=== PATIENT | male | born 1990 | race American Indian/Alaskan Native ===

== ENCOUNTER 2018-05-29 12:26 | Inpatient (IN) | payer BC, OTHER ==
[2018-05-29] MEDS ORDERED: Morphine 4 MG/ML Syringe IVPUSH ONE (12:35)
--- NOTE | 2018-05-29 12:36 | EDM.PDOC ---
ED HPI GENERAL MEDICAL PROBLEM - General Chief Complaint: Abdominal Pain Stated Complaint: STOMACH PAIN Time Seen by Provider: 05/29/18 12:36 Source of Information: Reports: Patient History Limitations: Reports: No Limitations - History of Present Illness INITIAL COMMENTS - FREE TEXT/NARRATIVE: HISTORY AND PHYSICAL: History of present illness: Patient is a 27-year-old male brought in by EMS from [facility] for abdominal pain. Patient complaining of diffuse abdominal pain began around 2:30 this morning. Pain is all over her pelvis feels it mostly in the right lower quadrant. He states he had one loose stool this morning and one episode of vomiting. He has since been passing gas. He denies any previous abdominal surgeries. He states he has had felt feverish on and off for the last 2-3 weeks but did not develop any abdominal pain until early this morning. He has history of diet-controlled type 2 diabetes and hypertension. Labs done at [facility] show a normal white count at 10.7. Normal kidney and liver function. Review of systems: As per history of present illness and below otherwise all systems reviewed and negative. Past medical history: As per history of present illness and as reviewed below otherwise noncontributory. Surgical history: As per history of present illness and as reviewed below otherwise noncontributory. Social history: No reported history of drug or alcohol abuse. Family history: As per history of present illness and as reviewed below otherwise noncontributory. Physical exam: General: Patient sitting comfortably in no acute distress and nontoxic appearing HEENT: Atraumatic, normocephalic, pupils reactive, negative for conjunctival pallor or scleral icterus, mucous membranes moist, throat clear, neck supple, nontender, trachea midline. No meningeal signs. Lungs: Clear to auscultation, breath sounds equal bilaterally, chest nontender. Heart: S1S2, regular, negative for clicks, rubs, or overt murmur. Abdomen: Abdomen is obese. Bowel sounds diminished. Diffuse tenderness to light palpation with tenderness to the right lower quadrant. Soft, nondistended. Negative for masses or hepatosplenomegaly. Negative for costovertebral tenderness. Pelvis: Stable nontender. Genitourinary: Deferred. Rectal: Deferred. Extremities: Atraumatic, negative for cords or calf pain. Neurovascular unremarkable. Neuro: Awake, alert, oriented. Cranial nerves II through XII unremarkable. Cerebellum unremarkable. Motor and sensory unremarkable throughout. Exam nonfocal. Notes: Dr. Garcia evaluated patient in the ED and will take him to surgery today for appendectomy. Diagnostics: CT Abdomen/pelvis with contrast Therapeutics: 1L Normal Saline IV 6mg Morphine IV 3.375 Zosyn IV Prescriptions: Impression: Acute appendicitis Plan: Patient will be taken to surgery for appendectomy by Dr. Garcia today. Definitive disposition and diagnosis as appropriate pending reevaluation and review of above. Right Lower Abdomen Pain Score (Numeric/FACES): 9 - Related Data Allergies Allergy/AdvReac Type Severity Reaction Status Date / Time No Known Allergies Allergy Verified 05/29/18 12:30 Home Meds: Home Meds Lisinopril 10 mg DAILY 05/29/18 [History] Past Medical History - Past Health History Medical/Surgical History: Denies Medical/Surgical History Cardiovascular History: Reports: Hypertension Endocrine/Metabolic History: Reports: Obesity/BMI 30+ Other Endocrine/Metabolic History: pre-diabetic, not medicated, checks BG PRN - Infectious Disease History Infectious Disease History: Reports: Chicken Pox - Past Surgical History HEENT Surgical History: Reports: Oral Surgery Social & Family History - Family History Family Medical History: Noncontributory Cardiac: Reports: Hypertension OBGYN: Reports: Endocrine/Metabolic: Reports: Diabetes, type II - Tobacco Use Smoking Status *Q: Never Smoker - Recreational Drug Use Recreational Drug Use: No ED ROS GENERAL - Review of Systems Review Of Systems: ROS reveals no pertinent complaints other than HPI. ED EXAM, GI/ABD - Physical Exam Exam: See Below (see dictation) Course - Vital Signs Last Recorded V/S: Last Vital Signs Temp 96.9 F 05/29/18 12:27 Pulse 61 05/29/18 15:48 Resp 20 05/29/18 12:27 BP 138/73 05/29/18 15:48 Pulse Ox 98 05/29/18 15:48 - Orders/Labs/Meds Orders: Active Orders 24 hr Category Date Time Status Verify Patient Consent Obtain [RC] ASDIRECTED Care 05/29/18 15:49 Active Medication Administration Instruction [OM.PC] Routine Oth 05/29/18 15:49 Ordered Labs: Laboratory Tests 05/29/18 Range/Units 14:20 Urine Color YELLOW Urine Appearance CLEAR Urine pH 5.5 (5.0-8.0) Ur Specific [place] 1.010 (1.001-1.035) Urine Protein NEGATIVE (NEGATIVE) mg/dL Urine Glucose (UA) NEGATIVE (NEGATIVE) mg/dL Urine Ketones NEGATIVE (NEGATIVE) mg/dL Urine Occult Blood TRACE-INTACT H (NEGATIVE) Urine Nitrite NEGATIVE (NEGATIVE) Urine Bilirubin NEGATIVE (NEGATIVE) Urine Urobilinogen 0.2 (<2.0) EU/dL Ur Leukocyte Esterase NEGATIVE (NEGATIVE) Urine RBC NONE SEEN (0-2/HPF) Urine WBC 0-1 (0-5/HPF) Ur Epithelial Cells RARE (NONE-FEW) Amorphous Sediment NOT SEEN (NEGATIVE) Urine Bacteria NOT SEEN (NEGATIVE) Urine Mucus NOT SEEN (NONE-MOD) Meds: Medications Discontinued Medications Generic Name Dose Route Start Last Admin Trade Name Miguelq PRN Reason Stop Dose Admin Sodium Chloride 1,000 mls @ 999 mls/hr 05/29/18 14:40 05/29/18 15:14 Normal Saline IV 05/29/18 15:40 999 mls/hr STAT ONE Administration Piperacillin Sod/Tazobactam 50 mls @ 100 mls/hr 05/29/18 15:16 05/29/18 15:36 Sod 3.375 gm/ Sodium Chloride IV 05/29/18 15:45 100 mls/hr ONETIME ONE Administration Morphine Sulfate 4 mg 05/29/18 12:35 05/29/18 12:43 Morphine IVPUSH 05/29/18 12:36 4 mg ONETIME ONE Administration Morphine Sulfate 2 mg 05/29/18 15:02 05/29/18 15:14 Morphine IVPUSH 05/29/18 15:03 2 mg ONETIME ONE Administration Departure - Departure Time of Disposition: 15:59 Disposition: Home, Self-Care 01 Condition: Good Clinical Impression: Appendicitis, acute - Discharge Information Referrals: Marquis Boggs [Primary Care Provider] - Forms: ED Department Discharge
--- NOTE | 2018-05-29 14:37 | CT ---
CT of the abdomen and pelvis with contrast. HISTORY: Pain TECHNIQUE: Axial CT images were obtained of the abdomen and pelvis before and following administration of 100 mL of Isovue-370 in the left antecubital fossa without complication. Coronal and sagittal reconstructions obtained. FINDINGS: There are a few tiny calcified and noncalcified nodules within the left lung base, likely benign given the patient's age. The liver, spleen, adrenal glands, and pancreas appear normal. The gallbladder is normal. There is no bulky retroperitoneal lymphadenopathy or abdominal ascites. The kidneys enhance and function symmetrically without evidence of obstructive uropathy. The appendix is notably dilated measuring up to 1.9 cm containing multiple phleboliths. Minimal periappendiceal stranding is noted. No free fluid or free air. The large and small bowel are normal in caliber without evidence of obstruction. No pericolonic inflammation or stranding. No free pelvic fluid. The urinary bladder is normal. No pelvic lymphadenopathy. No suspicious osseous abnormalities identified. IMPRESSION: 1. Acute appendicitis without evidence of rupture.
[2018-05-29] MEDS ORDERED: Sodium Chloride 0.9% 1,000 ML IV ONE (14:40)
[2018-05-29] MEDS ORDERED: Morphine 2 MG/ML Syringe IVPUSH ONE (15:02)
[2018-05-29] MEDS ORDERED: Piperacillin/Tazobactam 3.375 GM in Sodium Chloride 0.9% 50 ML IV ONE (15:16)
[2018-05-29] MEDS ORDERED: Iopamidol 755 MG/ML 500 ML Multipack Bottle IVPUSH STA (15:59)
[2018-05-29] MEDS ORDERED: Sodium Chloride 0.9% 10 ML Syringe FLUSH PRN (16:06)
[2018-05-29] MEDS ORDERED: Sodium Chloride 0.9% 2.5 ML Syringe FLUSH PRN (16:06)
--- NOTE | 2018-05-29 16:15 | PCM.HP ---
H&P History of Present Illness - General Date of Service: 05/29/18 Admit Problem/Dx: Admission Diagnosis/Problem Admission Diagnosis/Problem Appendicitis Source of Information: Patient History Limitations: Reports: No Limitations - History of Present Illness Initial Comments - Free Text/Narative: Patient is a 27 year old male who presents with severe RLQ pain. He felt unwell last night when he went to bed. He was awoken this morning at 230am with periumbilical and RLQ pain. He was diaphoretic, nauseated and had an episode of emesis. He presented to an outside clinic. His CBC and CMP were normal. He was sent to the ER due to concerns for early appendicitis. A CT of the abdomen pelvis was performed that revealed a 1.9 cm dilated appendix containing multiple appendicoliths with no evidence of rupture. It was read as acute appendicitis. He has been NPO since yesterday. He was given IVF, IV zosyn, and IV pain medications. Right Lower Abdomen Pain Score (Numeric/FACES): 9 - Related Data Allergies/Adverse Reactions: Allergies Allergy/AdvReac Type Severity Reaction Status Date / Time No Known Allergies Allergy Verified 05/29/18 12:30 Home Medications: Home Meds Lisinopril 10 mg DAILY 05/29/18 [History] Past Medical History - Past Health History Medical/Surgical History: Denies Medical/Surgical History Cardiovascular History: Reports: Hypertension Gastrointestinal History: Reports: Other (See Below) (morbid obesity) Endocrine/Metabolic History: Reports: Obesity/BMI 30+ Other Endocrine/Metabolic History: pre-diabetic, not medicated, checks BG PRN - Infectious Disease History Infectious Disease History: Reports: Chicken Pox - Past Surgical History HEENT Surgical History: Reports: Oral Surgery Social & Family History - Family History Family Medical History: Noncontributory Cardiac: Reports: Hypertension OBGYN: Reports: Endocrine/Metabolic: Reports: Diabetes, type II - Tobacco Use Smoking Status *Q: Never Smoker - Recreational Drug Use Recreational Drug Use: No H&P Review of Systems - Review of Systems: Review Of Systems: ROS reveals no pertinent complaints other than HPI. Exam - Exam Exam: See Below - Vital Signs Vital Signs: Last Vital Signs Temp 36.1 C 05/29/18 12:27 Pulse 61 05/29/18 15:48 Resp 20 05/29/18 12:27 BP 138/73 05/29/18 15:48 Pulse Ox 98 05/29/18 15:48 Weight: 167 kg - Exam General: Alert, Oriented, Moderate Distress HEENT: Conjunctiva Clear, Mucosa Moist & [place], Posterior Pharynx Clear Lungs: Clear to Auscultation, Normal Respiratory Effort Cardiovascular: Regular Rate, Regular Rhythm GI/Abdominal Exam: Soft, No Distention, No Mass, Guarding (RLQ), Tender (RLQ) Extremities: Normal Inspection - Patient Data Lab Results Last 24 hrs: Laboratory Results - last 24 hr 05/29/18 Range/Units 14:20 Urine Color YELLOW Urine Appearance CLEAR Urine pH 5.5 (5.0-8.0) Ur Specific [place] 1.010 (1.001-1.035) Urine Protein NEGATIVE (NEGATIVE) mg/dL Urine Glucose (UA) NEGATIVE (NEGATIVE) mg/dL Urine Ketones NEGATIVE (NEGATIVE) mg/dL Urine Occult Blood TRACE-INTACT H (NEGATIVE) Urine Nitrite NEGATIVE (NEGATIVE) Urine Bilirubin NEGATIVE (NEGATIVE) Urine Urobilinogen 0.2 (<2.0) EU/dL Ur Leukocyte Esterase NEGATIVE (NEGATIVE) Urine RBC NONE SEEN (0-2/HPF) Urine WBC 0-1 (0-5/HPF) Ur Epithelial Cells RARE (NONE-FEW) Amorphous Sediment NOT SEEN (NEGATIVE) Urine Bacteria NOT SEEN (NEGATIVE) Urine Mucus NOT SEEN (NONE-MOD) - Problem List (1) Appendicitis, acute SNOMED Code(s): 34194422 ICD Code: K35.80 - UNSPECIFIED ACUTE APPENDICITIS Status: Acute Current Visit: Yes Problem List Initiated/Reviewed/Updated: Yes Orders Last 24hrs: Active Orders 24 hr Category Date Time Status Admission Status [Patient Status] [ADT] Stat ADT 05/29/18 16:00 Active Verify Patient Consent Obtain [RC] ASDIRECTED Care 05/29/18 15:49 Active Medication Administration Instruction [OM.PC] Routine Oth 05/29/18 15:49 Ordered Assessment/Plan Comment:: The patient and I discussed the pathophysiology of acute appendicitis. I explained to him that the treatment is appendectomy especially given the multiple appendicoliths in his appendix. I will attempt this laparoscopically but should I be unable to perform it safely I will have to convert to open. The patient and I discussed the risks including bleeding infection or damage to surrounding structures. He verbalized understanding and wishes to proceed.
--- NOTE | 2018-05-29 16:15 | PCM.PREANE ---
Preanesthetic Assessment - Anesthesia/Transfusion/Family Hx Anesthesia History: Prior Anesthesia Without Reaction Family History of Anesthesia Reaction: No - Review of Systems General: No Symptoms Pulmonary: No Symptoms Cardiovascular: No Symptoms Gastrointestinal: No Symptoms Neurological: No Symptoms Other: Reports: None - Physical Assessment NPO Status Date: 05/29/18 NPO Status Time: 08:00 O2 Sat by Pulse Oximetry: 98 Respiratory Rate: 20 Vital Signs: Last Vital Signs Temp 36.1 C 05/29/18 12:27 Pulse 61 05/29/18 15:48 Resp 20 05/29/18 12:27 BP 138/73 05/29/18 15:48 Pulse Ox 98 05/29/18 15:48 Height: 6 ft 2 in Weight: 167 kg ASA Class: 2E Mental Status: Alert & Oriented x3 Airway Class: Mallampati = 2 Dentition: Reports: Normal Dentition Thyro-Mental Finger Breadths: 3 Mouth Opening Finger Breadths: 3 ROM/Head Extension: Full Lungs: Clear to Auscultation, Normal Respiratory Effort Cardiovascular: Regular Rate, Regular Rhythm - Lab Values: Laboratory Last Values Urine Color YELLOW 05/29/18 14:20 Urine Appearance CLEAR 05/29/18 14:20 Urine pH 5.5 (5.0-8.0) 05/29/18 14:20 Ur Specific [place] 1.010 (1.001-1.035) 05/29/18 14:20 Urine Protein NEGATIVE mg/dL (NEGATIVE) 05/29/18 14:20 Urine Glucose (UA) NEGATIVE mg/dL (NEGATIVE) 05/29/18 14:20 Urine Ketones NEGATIVE mg/dL (NEGATIVE) 05/29/18 14:20 Urine Occult Blood TRACE-INTACT (NEGATIVE) H 05/29/18 14:20 Urine Nitrite NEGATIVE (NEGATIVE) 05/29/18 14:20 Urine Bilirubin NEGATIVE (NEGATIVE) 05/29/18 14:20 Urine Urobilinogen 0.2 EU/dL (<2.0) 05/29/18 14:20 Ur Leukocyte Esterase NEGATIVE (NEGATIVE) 05/29/18 14:20 Urine RBC NONE SEEN (0-2/HPF) 05/29/18 14:20 Urine WBC 0-1 (0-5/HPF) 05/29/18 14:20 Ur Epithelial Cells RARE (NONE-FEW) 05/29/18 14:20 Amorphous Sediment NOT SEEN (NEGATIVE) 05/29/18 14:20 Urine Bacteria NOT SEEN (NEGATIVE) 05/29/18 14:20 Urine Mucus NOT SEEN (NONE-MOD) 05/29/18 14:20 - Allergies Allergies/Adverse Reactions: Allergies Allergy/AdvReac Type Severity Reaction Status Date / Time No Known Allergies Allergy Verified 05/29/18 12:30 - Acknowledgements Anesthesia Type Planned: General Anesthesia Pt an Appropriate Candidate for the Planned Anesthesia: Yes Alternatives and Risks of Anesthesia Discussed w Pt/Guardian: Yes Pt/Guardian Understands and Agrees with Anesthesia Plan: Yes PreAnesthesia Questionnaire - Past Health History Medical/Surgical History: Denies Medical/Surgical History (Patient has [place] teeth out at age 14.) HEENT History: Reports: None Cardiovascular History: Reports: Hypertension Respiratory History: Reports: None Gastrointestinal History: Reports: GERD (food related) Genitourinary History: Reports: None Musculoskeletal History: Reports: None Neurological History: Reports: None Psychiatric History: Reports: None Endocrine/Metabolic History: Reports: Obesity/BMI 30+ Other Endocrine/Metabolic History: pre-diabetic, not medicated, checks BG PRN Oncologic (Cancer) History: Reports: None Dermatologic History: Reports: None - Infectious Disease History Infectious Disease History: Reports: Chicken Pox - Past Surgical History HEENT Surgical History: Reports: Oral Surgery - SUBSTANCE USE Smoking Status *Q: Never Smoker Recreational Drug Use History: No - HOME MEDS Home Medications: Home Meds Lisinopril 10 mg DAILY 05/29/18 [History] - CURRENT (IN HOUSE) MEDS Current Meds: Current Medications Discontinued Medications Sodium Chloride (Normal Saline) 1,000 mls @ 999 mls/hr IV STAT ONE Stop: 05/29/18 15:40 Last Admin: 05/29/18 15:14 Dose: 999 mls/hr Piperacillin Sod/Tazobactam (Sod 3.375 gm/ Sodium Chloride) 50 mls @ 100 mls/ hr IV ONETIME ONE Stop: 05/29/18 15:45 Last Admin: 05/29/18 15:36 Dose: 100 mls/hr Iopamidol (Isovue Multipack-370 (76%)) 100 ml IVPUSH ONETIME STA Stop: 05/29/18 16:00 Last Admin: 05/29/18 16:01 Dose: 100 ml Morphine Sulfate (Morphine) 4 mg IVPUSH ONETIME ONE Stop: 05/29/18 12:36 Last Admin: 05/29/18 12:43 Dose: 4 mg Morphine Sulfate (Morphine) 2 mg IVPUSH ONETIME ONE Stop: 05/29/18 15:03 Last Admin: 05/29/18 15:14 Dose: 2 mg
[2018-05-29] MEDS ORDERED: Bupivacaine 0.5% 30 ML SDV ONE (16:16)
[2018-05-29] MEDS: Lactated Ringers 1,000 ML IV SCH (16:17)
[2018-05-29] MEDS ORDERED: fentaNYL 250 MCG/5 ML SDV ONE (16:23)
[2018-05-29] MEDS ORDERED: Propofol 200 MG/20 ML SDV ONE ×2 (16:23→16:24)
[2018-05-29] MEDS ORDERED: Rocuronium 10 MG/ML 10 ML Syringe ONE (16:59)
[2018-05-29] MEDS ORDERED: Dexamethasone 4 MG/ML 5 ML MDV ONE (16:59)
[2018-05-29] MEDS ORDERED: Ondansetron 4 MG/2 ML SDV ONE (16:59)
[2018-05-29] MEDS ORDERED: Neostigmine Methylsulfate 1 MG/ML 5 ML Syringe ONE (18:04)
[2018-05-29] MEDS ORDERED: Ketorolac 30 MG/ML SDV ONE (18:04)
[2018-05-29] MEDS ORDERED: Glycopyrrolate 0.2 MG/ML SDV ONE (18:04)
[2018-05-29] MEDS ORDERED: Lidocaine 2% 5 ML SDV ONE (18:05)
[2018-05-29] MEDS ORDERED: Esmolol 100 MG/10 ML SDV ONE (18:09)
[2018-05-29] MEDS ORDERED: Meperidine PF 25 MG/ML Syringe ONE (18:16)
--- NOTE | 2018-05-29 18:23 | PCM.OPNOTE ---
- General Post-Op/Procedure Note Date of Surgery/Procedure: 05/29/18 Operative Procedure(s): Laparoscopic appendectomy Findings: Grossly enlarge and inflamed appendix. Ruptured with manipulation. Pre Op Diagnosis: Appendicitis Post-Op Diagnosis: same Anesthesia Technique: General ET Tube Pathology: Appendix Fluid Replacement, Intraop: 1,000 Output, Urine Amount: 200 EBL in mLs: 10 Condition: Stable
[2018-05-29] MEDS ORDERED: fentaNYL 100 MCG/2 ML SDV IVPUSH PRN (18:26)
[2018-05-29] MEDS ORDERED: Ondansetron 4 MG/2 ML SDV IVPUSH PRN (18:31)
[2018-05-29] MEDS ORDERED: Scopolamine 1.5 MG Transdermal Patch TRDERM PRN (18:31)
[2018-05-29] MEDS ORDERED: Promethazine 25 MG Tab PO PRN (18:32)
--- NOTE | 2018-05-29 20:27 | PCM.POSTAN ---
POST ANESTHESIA ASSESSMENT - MENTAL STATUS Mental Status: Alert, Oriented - RESPIRATORY Respiratory Status: Respiratory Rate WNL, Airway Patent, O2 Saturation Stable - CARDIOVASCULAR CV Status: Pulse Rate WNL, Blood Pressure Stable - GASTROINTESTINAL GI Status: No Symptoms - PAIN Pain Score: 2 - POST OP HYDRATION Hydration Status: Adequate & Stable
[2018-05-29] MEDS: Acetaminophen/oxyCODONE 325-5 MG Tab PO PRN (20:34)
[2018-05-29] MEDS: Piperacillin/Tazobactam 4.5 GM in Sodium Chloride 0.9% 100 ML IV SCH (22:06)
--- NOTE | 2018-05-30 01:16 | OR ---
SURGEON: GISELLE SCHNEIDER MD DATE OF PROCEDURE: 05/29/2018 PREOPERATIVE DIAGNOSIS: Acute appendicitis. POSTOPERATIVE DIAGNOSIS: Acute appendicitis. PROCEDURE PERFORMED: Laparoscopic appendectomy. ANESTHESIA: General endotracheal anesthesia. FLUIDS: 1000 mL crystalloid. ESTIMATED BLOOD LOSS: 10 mL. URINE OUTPUT: 200 mL. FINDINGS: Grossly enlarged and inflamed appendix. Perforation with manipulation of the appendix. COMPLICATIONS: None. INDICATIONS: The patient is a 27-year-old male, who presents with one day of right lower quadrant abdominal pain. A CT of the abdomen and pelvis showed a grossly distended inflamed appendix full of appendicoliths consistent with acute appendicitis. The patient and I discussed these findings. I explained that the treatment for appendicitis is appendectomy. I explained to him that I would attempt it laparoscopically, but should I be unable to perform this safely, I would convert it to open. I explained the procedure, expected perioperative course, and risks including bleeding, infection, or damage to surrounding structures. The patient verbalized understanding and wishes to proceed. PROCEDURE IN DETAIL: The patient was brought into the OR and placed on the OR table in supine position. A time-out was completed verifying the patient's name, age, date of , allergies, and procedure to be performed. General endotracheal anesthesia was induced. The left arm was tucked to the patient's side and a Adkins catheter placed. The abdomen was prepped and draped in usual standard fashion. I anesthetized the skin three fingerbreadths below the left subcostal margin in the midclavicular line with 0.5% Marcaine plain. A 1 cm incision was made using an 11 blade. A 5 mm optical trocar was used to gain entry into the abdomen in the left upper quadrant. All layers of the abdominal wall were visualized upon entry. The abdomen was insufflated and I inserted a 5 mm 30 degree scope into the abdomen. I inspected the area underneath my initial trocar placement. No damage to surrounding structures was noted. A 5 mm trocar was placed under direct visualization just left and lateral of the umbilicus. The patient was then placed into Trendelenburg position and airplaned slightly to the left. I immediately encountered an enlarged and inflamed appendix. I then placed a 12 mm trocar under direct visualization in the left lower quadrant. The tip of the appendix was grasped with an atraumatic grasper and I followed the appendiceal mesentery down to the base of the appendix. I could clearly see the tenia of the cecum and see where the appendix inserted on the cecum. Using a Harmonic Scalpel, I took down the appendiceal mesentery from the body of the appendix in distal to proximal fashion. While manipulating the appendix, it ruptured in the middle. There was some spillage of purulent fluid and a small appendicolith fell out. I quickly suctioned as much fluid as I could and removed the appendicolith using my atraumatic graspers. I continued to carry my dissection down to the base of the appendix. Once the base of the appendix was cleared away, I then brought an endoscopic stapling device into the field. I then stapled and transected across the base of the appendix where it inserted on the cecum using a 45 mm blue load of krish. The appendix was then placed in an EndoCatch bag and removed through the 12 mm port site. The 12 mm port was placed back in the abdomen and I copiously irrigated the abdomen with 3 L of normal saline. Great care was taken to try and suction out as much food as I possibly could. I then inspected my staple line and it appeared to be intact. The field was hemostatic. The 12 mm port site was then closed with a 0 Vicryl suture using a Rob-Seble device. I noticed some bruising around the 12 mm trocar site. I closely monitored this area for several minutes to ensure that he was not developing a large hematoma in the area. The bruising did not seem to progress and I was satisfied with my hemostasis. The 5 mm trocars were removed under direct visualization and the abdomen allowed to desufflate. Given the contaminated nature of the case, I closed the incision sites with krish. Sterile dressings were applied. The patient tolerated the procedure well and was extubated in the operating room. He was transferred to the PACU in stable condition. All counts were complete and correct at the end of the case. ISIDRO SUNSHINE /[id number] [place]
[2018-05-30] MEDS: Acetaminophen/oxyCODONE 325-5 MG Tab PO PRN ×4 (02:23→16:54)
[2018-05-30] MEDS: Lactated Ringers 1,000 ML IV SCH ×2 (02:57→18:34)
[2018-05-30] MEDS: Piperacillin/Tazobactam 4.5 GM in Sodium Chloride 0.9% 100 ML IV SCH ×3 (06:32→23:15)
[2018-05-30 06:41] LABS: CHLORIDE,CL 105 mmol/L (98-107); SODIUM,NA 139 mmol/L (136-148)
[2018-05-30] MEDS: Lisinopril 10 MG Tab PO SCH (08:36)
--- NOTE | 2018-05-30 08:40 | PCM48HPAN ---
Post Anesthesia Note - EVALUATION WITHIN 48HRS OF ANESTHETIC Vital Signs in Normal Range: Yes Patient Participated in Evaluation: Yes Respiratory Function Stable: Yes Airway Patent: Yes Cardiovascular Function Stable: Yes Hydration Status Stable: Yes Pain Control Satisfactory: Yes (Pt states doing ok. Sore but not in pain like before surgery.) Nausea and Vomiting Control Satisfactory: Yes Mental Status Recovered: Yes Resp Rate: 23 - COMMENTS/OBSERVATIONS Free Text/Narrative:: Patient sitting on edge of bed. He states it's hard for him to take a deep breath due to discomfort. Encouraged him to continue his spirometry, walk and stay on top of his pain. Vital signs are stable. No anesthesia complications at this time.
[2018-05-30] MEDS ORDERED: Cyclobenzaprine 5 MG Tab PO PRN (09:28)
--- NOTE | 2018-05-30 09:37 | PCM.SURGPN ---
- General Info Date of Service: 05/30/18 Date of Surgery/Procedure: 05/29/18 POD#: 1 Functional Status: Reports: Other (Pin in shoulders this morning. Sore in RLQ but much better than before surgery. Minimal tenderness along incisions. ) - Review of Systems General: Reports: No Symptoms HEENT: Reports: No Symptoms Pulmonary: Reports: Shortness of Breath Cardiovascular: Reports: No Symptoms Gastrointestinal: Reports: Abdominal Pain (RLQ) Musculoskeletal: Reports: Shoulder Pain - Patient Data Vitals - Most Recent: Last Vital Signs Temp 37.3 C 05/30/18 09:06 Pulse 106 H 05/30/18 09:06 Resp 17 05/30/18 09:06 BP 112/60 05/30/18 09:06 Pulse Ox 93 L 05/30/18 09:06 Weight - Most Recent: 167 kg I&O - Last 24 Hours: Intake & Output 05/29/18 05/30/18 05/30/18 22:59 06:59 14:59 Intake Total 2000 1000 Output Total 600 800 Balance 1400 200 Lab Results Last 24 Hrs: Laboratory Results - last 24 hr 05/29/18 05/30/18 05/30/18 Range/Units 14:20 06:01 06:01 WBC 12.11 H (4.0-11.0) K/uL RBC 4.78 (4.50-5.90) M/uL Hgb 14.5 (13.0-17.0) g/dL Hct 42.6 (38.0-50.0) % MCV 89.1 (80.0-98.0) fL MCH 30.3 (27.0-32.0) pg MCHC 34.0 (31.0-37.0) g/dL RDW Std Deviation 45.2 (28.0-62.0) fl RDW Coeff of Merna 14 (11.0-15.0) % Plt Count 248 (150-400) K/uL MPV 10.40 (7.40-12.00) fL Nucleated RBC % 0.0 /100WBC Nucleated RBCs # 0 K/uL Sodium 139 (136-148) mmol/L Potassium 4.4 (3.5-5.1) mmol/L Chloride 105 (98-107) mmol/L Carbon Dioxide 24.0 (21.0-32.0) mmol/L BUN 12 (7.0-18.0) mg/dL Creatinine 1.1 (0.8-1.3) mg/dL Est Cr Clr Drug Dosing 115.20 mL/min Estimated GFR (MDRD) > 60.0 ml/min Glucose 145 H (74-106) mg/dL Calcium 9.6 (8.5-10.1) mg/dL Urine Color YELLOW Urine Appearance CLEAR Urine pH 5.5 (5.0-8.0) Ur Specific [place] 1.010 (1.001-1.035) Urine Protein NEGATIVE (NEGATIVE) mg/dL Urine Glucose (UA) NEGATIVE (NEGATIVE) mg/dL Urine Ketones NEGATIVE (NEGATIVE) mg/dL Urine Occult Blood TRACE-INTACT H (NEGATIVE) Urine Nitrite NEGATIVE (NEGATIVE) Urine Bilirubin NEGATIVE (NEGATIVE) Urine Urobilinogen 0.2 (<2.0) EU/dL Ur Leukocyte Esterase NEGATIVE (NEGATIVE) Urine RBC NONE SEEN (0-2/HPF) Urine WBC 0-1 (0-5/HPF) Ur Epithelial Cells RARE (NONE-FEW) Amorphous Sediment NOT SEEN (NEGATIVE) Urine Bacteria NOT SEEN (NEGATIVE) Urine Mucus NOT SEEN (NONE-MOD) Med Orders - Current: Current Medications Cyclobenzaprine HCl (Flexeril) 5 mg PO TID PRN PRN Reason: Abdominal Pain Fentanyl (Sublimaze) 50 mcg IVPUSH Q5M PRN PRN Reason: Pain (severe 7-10) Stop: 05/30/18 18:27 Hydromorphone HCl (Dilaudid) 0.5 mg IVPUSH Q1H PRN PRN Reason: Abdominal Pain Lactated Ringer's (Ringers, Lactated) 1,000 mls @ 125 mls/hr IV ASDIRECTED [facility] Last Admin: 05/30/18 02:57 Dose: 125 mls/hr Piperacillin Sod/Tazobactam (Sod 4.5 gm/ Sodium Chloride) 100 mls @ 100 mls/hr IV Q8H [facility] Last Admin: 05/30/18 06:32 Dose: 100 mls/hr Lisinopril (Prinivil) 10 mg PO DAILY [facility] Last Admin: 05/30/18 08:36 Dose: 10 mg Ondansetron HCl (Zofran) 4 mg IVPUSH Q6H PRN PRN Reason: Nausea/Vomiting Oxycodone/Acetaminophen (Percocet 325-5 Mg) 2 tab PO Q4H PRN PRN Reason: Abdominal Pain Last Admin: 05/30/18 08:39 Dose: 2 tab Promethazine HCl (Phenergan) 25 mg PO Q6H PRN PRN Reason: Nausea/Vomiting Scopolamine (Transderm-Scop) 1.5 mg TRDERM Q72H PRN PRN Reason: Nausea Sodium Chloride (Saline Flush) 10 ml FLUSH ASDIRECTED PRN PRN Reason: Keep Vein Open Last Admin: 05/29/18 16:17 Dose: 10 ml Sodium Chloride (Saline Flush) 2.5 ml FLUSH ASDIRECTED PRN PRN Reason: Keep Vein Open Last Admin: 05/29/18 16:17 Dose: 2.5 ml Discontinued Medications Bupivacaine HCl (Marcaine 0.5%) Confirm Administered Dose 30 ml .ROUTE .STK-MED ONE Stop: 05/29/18 16:17 Dexamethasone (Dexamethasone) Confirm Administered Dose 20 mg .ROUTE .STK-MED ONE Stop: 05/29/18 17:00 Esmolol HCl (Esmolol) Confirm Administered Dose 100 mg .ROUTE .STK-MED ONE Stop: 05/29/18 18:10 Fentanyl (Sublimaze) Confirm Administered Dose 250 mcg .ROUTE .STK-MED ONE Stop: 05/29/18 16:24 Glycopyrrolate (Robinul) Confirm Administered Dose 0.4 mg .ROUTE .STK-MED ONE Stop: 05/29/18 18:05 Sodium Chloride (Normal Saline) 1,000 mls @ 999 mls/hr IV STAT ONE Stop: 05/29/18 15:40 Last Admin: 05/29/18 15:14 Dose: 999 mls/hr Piperacillin Sod/Tazobactam (Sod 3.375 gm/ Sodium Chloride) 50 mls @ 100 mls/ hr IV ONETIME ONE Stop: 05/29/18 15:45 Last Admin: 05/29/18 15:36 Dose: 100 mls/hr Iopamidol (Isovue Multipack-370 (76%)) 100 ml IVPUSH ONETIME STA Stop: 05/29/18 16:00 Last Admin: 05/29/18 16:01 Dose: 100 ml Ketorolac Tromethamine (Toradol) Confirm Administered Dose 30 mg .ROUTE .STK- MED ONE Stop: 05/29/18 18:05 Lidocaine (Xylocaine-Mpf 2%) Confirm Administered Dose 5 ml .ROUTE .STK-MED ONE Stop: 05/29/18 18:06 Meperidine HCl (Demerol) Confirm Administered Dose 25 mg .ROUTE .STK-MED ONE Stop: 05/29/18 18:17 Morphine Sulfate (Morphine) 4 mg IVPUSH ONETIME ONE Stop: 05/29/18 12:36 Last Admin: 05/29/18 12:43 Dose: 4 mg Morphine Sulfate (Morphine) 2 mg IVPUSH ONETIME ONE Stop: 05/29/18 15:03 Last Admin: 05/29/18 15:14 Dose: 2 mg Neostigmine Methylsulfate (Neostigmine) Confirm Administered Dose 5 mg .ROUTE .STK-MED ONE Stop: 05/29/18 18:05 Ondansetron HCl (Zofran) Confirm Administered Dose 4 mg .ROUTE .STK-MED ONE Stop: 05/29/18 17:00 Propofol (Diprivan 20 Ml) Confirm Administered Dose 200 mg .ROUTE .STK-MED ONE Stop: 05/29/18 16:24 Propofol (Diprivan 20 Ml) Confirm Administered Dose 200 mg .ROUTE .STK-MED ONE Stop: 05/29/18 16:25 Rocuronium [place] (Zemuron) Confirm Administered Dose 100 mg .ROUTE .STK-MED ONE Stop: 05/29/18 17:00 - Exam Wound/Incisions: Healing Well, Dressing Dry and Intact General: Alert, Oriented, Mild Distress Lungs: Normal Respiratory Effort Cardiovascular: Regular Rate GI/Abdominal Exam: Soft, No Distention, No Mass, Tender (mild tenderness in RLQ ) Extremities: Normal Inspection Skin: Warm, Dry, Intact Neurological: No New Focal Deficit Psy/Mental Status: Alert, Normal Affect, Normal Mood - Problem List & Annotations (1) Appendicitis, acute SNOMED Code(s): 83761821 Code(s): K35.80 - UNSPECIFIED ACUTE APPENDICITIS Status: Acute Current Visit: Yes - Problem List Review Problem List Initiated/Reviewed/Updated: Yes - My Orders Last 24 Hours: Active Orders 24 hr Category Date Time Status Admission Status [Patient Status] [ADT] Stat ADT 05/29/18 16:00 Active Patient Status [ADT] Routine ADT 05/29/18 16:06 Active Antiembolic Devices [RC] PER UNIT ROUTINE Care 05/29/18 16:07 Active Bradycardia-Neuroaxis [employer] [RC] ROUTINE Care 05/29/18 18:26 Active Hypertension-Neuroaxis [employer] [RC] ROUTINE Care 05/29/18 18:26 Active Hypotension-Neuroaxis [employer] [RC] ROUTINE Care 05/29/18 18:26 Active Overnight Pulse Oximetry [Overnight Pulse Oximetry] [RC Care 05/29/18 18:35 Active ] Click to Edit Clear Liquid Diet [DIET] Diet 05/29/18 Dinner Active Regular Diet [DIET] Diet 05/30/18 Lunch Ordered Acetaminophen/oxyCODONE [Percocet 325-5 MG] Med 05/29/18 18:20 Active 2 tab PO Q4H PRN Cyclobenzaprine [Flexeril] Med 05/30/18 09:28 Ordered 5 mg PO TID PRN HYDROmorphone [Dilaudid] Med 05/29/18 18:19 Active 0.5 mg IVPUSH Q1H PRN Lactated Ringers [Ringers, Lactated] 1,000 ml Med 05/29/18 16:15 Active IV ASDIRECTED Lisinopril [Prinivil] Med 05/30/18 09:00 Active 10 mg PO DAILY Ondansetron [Zofran] Med 05/29/18 18:31 Active 4 mg IVPUSH Q6H PRN Piperacillin/Tazobactam [Piperacil-Tazobact] 4.5 gm Med 05/29/18 23:00 Active Sodium Chloride 0.9% [Normal Saline] 100 ml IV Q8H Promethazine [Phenergan] Med 05/29/18 18:32 Active 25 mg PO Q6H PRN Scopolamine [Transderm-Scop] Med 05/29/18 18:31 Active 1.5 mg TRDERM Q72H PRN Sodium Chloride 0.9% [Saline Flush] Med 05/29/18 16:06 Active 10 ml FLUSH ASDIRECTED PRN Sodium Chloride 0.9% [Saline Flush] Med 05/29/18 16:06 Active 2.5 ml FLUSH ASDIRECTED PRN fentaNYL [Sublimaze] Med 05/29/18 18:26 Active 50 mcg IVPUSH Q5M PRN Medication Administration Instruction [OM.PC] Routine Oth 05/29/18 15:49 Ordered Peripheral IV Insertion Adult [OM.PC] Routine Oth 05/29/18 16:06 Ordered Sequential Compression Device [OM.PC] Routine Oth 05/29/18 16:06 Ordered Resuscitation Status Routine Resus Stat 05/29/18 16:06 Ordered Medication Orders Cyclobenzaprine HCl (Flexeril) 5 mg PO TID PRN PRN Reason: Abdominal Pain Fentanyl (Sublimaze) 50 mcg IVPUSH Q5M PRN PRN Reason: Pain (severe 7-10) Stop: 05/30/18 18:27 Hydromorphone HCl (Dilaudid) 0.5 mg IVPUSH Q1H PRN PRN Reason: Abdominal Pain Lactated Ringer's (Ringers, Lactated) 1,000 mls @ 125 mls/hr IV ASDIRECTED [facility] Last Admin: 05/30/18 02:57 Dose: 125 mls/hr Infusion: 05/30/18 00:17 Dose: 125 mls/hr Admin: 05/29/18 16:17 Dose: 125 mls/hr Piperacillin Sod/Tazobactam (Sod 4.5 gm/ Sodium Chloride) 100 mls @ 100 mls/hr IV Q8H [facility] Last Admin: 05/30/18 06:32 Dose: 100 mls/hr Infusion: 05/29/18 23:06 Dose: 100 mls/hr Admin: 05/29/18 22:06 Dose: 100 mls/hr Lisinopril (Prinivil) 10 mg PO DAILY [facility] Last Admin: 05/30/18 08:36 Dose: 10 mg Ondansetron HCl (Zofran) 4 mg IVPUSH Q6H PRN PRN Reason: Nausea/Vomiting Oxycodone/Acetaminophen (Percocet 325-5 Mg) 2 tab PO Q4H PRN PRN Reason: Abdominal Pain Last Admin: 05/30/18 08:39 Dose: 2 tab Admin: 05/30/18 02:23 Dose: 2 tab Admin: 05/29/18 20:34 Dose: 2 tab Promethazine HCl (Phenergan) 25 mg PO Q6H PRN PRN Reason: Nausea/Vomiting Scopolamine (Transderm-Scop) 1.5 mg TRDERM Q72H PRN PRN Reason: Nausea Sodium Chloride (Saline Flush) 10 ml FLUSH ASDIRECTED PRN PRN Reason: Keep Vein Open Last Admin: 05/29/18 16:17 Dose: 10 ml Sodium Chloride (Saline Flush) 2.5 ml FLUSH ASDIRECTED PRN PRN Reason: Keep Vein Open Last Admin: 05/29/18 16:17 Dose: 2.5 ml - Plan Plan (Free Text/Narrative):: -Pain: IV dilaudid for severe pain, percocet and flexeril prn -CV: Vitals stable. -Pulmonary: Encouraged OOB activity and IS use. We discussed how to use this machine. -GI: regular diet -Renal: D/C IVF -ID: Iv zosyn until tomorrow given the perforated appendix -Px: SCDs, no need for GI px
[2018-05-30] MEDS: HYDROmorphone 1 MG/ML Syringe IVPUSH PRN ×2 (17:05→18:32)
[2018-05-30] MEDS ORDERED: HYDROmorphone 1 MG/ML Syringe IVPUSH ONE (17:20)
--- NOTE | 2018-05-30 18:05 | PCM.SN ---
- Free Text/Narrative Note: Patient is a 27 year old male who is POD #1 from a laparoscopic appendectomy. He was doing well this afternoon. He tolerated a regular diet. UOP was adequate. He ambulated in the halls then took a nap. Pain was under control. Upon waking from the nap he went to the bathroom, urinated then developed severe abdominal pain. He states that the pain is most severe on the right side of the abdomen. He complains of pain with movement. He was given percocet, flexeril, and 1mg of IV Dilaudid with no relief. His vitals were HR 122. BP 176/ 79. RR 18 and sats 91%. On physicial exam he is tender with palpation on the right side of the abdomen. There is no sanjana rebound or guarding, but he complains of severe pain with any palpation. He is not tender with percussion. A stat CBC was drawn. It is unchanged from this morning. A stat lactate and BMP were ordered and are pending. Given how severe his pain is I am ordering a stat CT abdomen/pelvis without IV contrast.
[2018-05-30 18:22] LABS: CHLORIDE,CL 103 mmol/L (98-107); SODIUM,NA 137 mmol/L (136-148)
--- NOTE | 2018-05-30 19:02 | CT ---
Indication: Abdominal pain. Technique: Multiple contiguous axial images were obtained from the lung bases through the symphysis pubis without intravenous contrast enhancement. Please note that all CT scans at this facility use dose modulation, iterative reconstruction, and/or weight-based dosing when appropriate to reduce radiation dose to as low as reasonably achievable. Comparison: None Findings: Trace bilateral pleural effusions are identified. Bibasilar atelectasis is seen. The heart is normal in size. No pericardial effusions identified. The unenhanced liver, spleen, pancreas, adrenals, and kidneys are normal. No intrahepatic biliary ductal dilatation is identified. No hydronephrosis is identified. There is high-density layering within the gallbladder, suggesting stones/sludge. In the pelvis, the urinary bladder is normal. The prostate gland is normal. The patient had an appendectomy yesterday. Inflammatory changes are identified in the right lower quadrant. Free fluid is identified within the pelvis. No definite abscess is identified. No definite free air seen. The small and large bowel are normal in caliber. The aorta is normal in caliber. No lytic or blastic lesions are identified within the spine. Multiple images are degraded by motion artifact. Impression: Inflammatory changes in the right lower quadrant s/p appendectomy. No definite free air, but free fluid is identified within the pelvis. An abscess is not clearly seen. These findings were discussed with Dr. Garcia at the time of this dictation. Please note that all CT scans at this facility use dose modulation, iterative reconstruction, and/or weight-based dosing when appropriate to reduce radiation dose to as low as reasonably achievable. Dictated by Amelia Lockett MD @ May 30 2018 6:52PM Signed by Dr. Amelia Lockett @ May 30 2018 6:59PM
[2018-05-30] MEDS ORDERED: diazePAM 5 MG/ML MDV IV PRN (19:10)
[2018-05-30] MEDS ORDERED: Morphine 4 MG/ML Syringe IVPUSH PRN (19:10)
[2018-05-30] MEDS: Ketorolac 15 MG/ML SDV IVPUSH SCH (19:49)
[2018-05-30] MEDS: Acetaminophen/HYDROcodone 325-5 MG Tab PO PRN (22:06)
[2018-05-31] MEDS: Ketorolac 15 MG/ML SDV IVPUSH SCH ×4 (00:21→18:21)
[2018-05-31] MEDS: Lactated Ringers 1,000 ML IV SCH (03:06)
[2018-05-31] MEDS: Acetaminophen/HYDROcodone 325-5 MG Tab PO PRN ×5 (03:51→23:01)
[2018-05-31 06:10] LABS: CHLORIDE,CL 104 mmol/L (98-107); SODIUM,NA 135 mmol/L (136-148)
[2018-05-31] MEDS: Piperacillin/Tazobactam 4.5 GM in Sodium Chloride 0.9% 100 ML IV SCH ×3 (06:44→22:59)
--- NOTE | 2018-05-31 07:50 | PCM.SURGPN ---
- General Info Date of Service: 05/31/18 Date of Surgery/Procedure: 05/29/18 POD#: 2 Functional Status: Reports: Other (Patient states that his pain is under much better control this morning. He is still sore along the right side of his abdomen. He had shoulder pain last evening but that is now gone. No fevers overnight. Remains mildly tachycardic. No nausea or vomiting. Started passing flatus overnight. ) - Review of Systems General: Reports: No Symptoms HEENT: Reports: No Symptoms Pulmonary: Reports: No Symptoms Cardiovascular: Reports: No Symptoms Gastrointestinal: Reports: Abdominal Pain (RLQ), Flatus Genitourinary: Reports: No Symptoms Musculoskeletal: Reports: No Symptoms Skin: Reports: No Symptoms Neurological: Reports: No Symptoms - Patient Data Vitals - Most Recent: Last Vital Signs Temp 36.8 C 05/31/18 03:00 Pulse 117 H 05/31/18 03:00 Resp 18 05/31/18 03:00 BP 159/76 H 05/31/18 03:00 Pulse Ox 91 L 05/31/18 03:00 Weight - Most Recent: 167 kg I&O - Last 24 Hours: Intake & Output 05/30/18 05/31/18 05/31/18 22:59 06:59 14:59 Intake Total 1090 Balance 1090 Lab Results Last 24 Hrs: Laboratory Results - last 24 hr 05/30/18 05/30/18 05/30/18 Range/Units 17:28 17:54 17:54 WBC 12.02 H (4.0-11.0) K/uL RBC 4.83 (4.50-5.90) M/uL Hgb 14.7 (13.0-17.0) g/dL Hct 43.1 (38.0-50.0) % MCV 89.2 (80.0-98.0) fL MCH 30.4 (27.0-32.0) pg MCHC 34.1 (31.0-37.0) g/dL RDW Std Deviation 46.1 (28.0-62.0) fl RDW Coeff of Merna 14 (11.0-15.0) % Plt Count 252 (150-400) K/uL MPV 10.10 (7.40-12.00) fL Neut % (Auto) 77.1 (48.0-80.0) % Lymph % (Auto) 16.5 (16.0-40.0) % [place] % (Auto) 6.2 (0.0-15.0) % Eos % (Auto) 0.1 (0.0-7.0) % Baso % (Auto) 0.1 (0.0-1.5) % Neut # (Auto) 9.3 H (1.4-5.7) K/uL Lymph # (Auto) 2.0 (0.6-2.4) K/uL [place] # (Auto) 0.8 (0.0-0.8) K/uL Eos # (Auto) 0.0 (0.0-0.7) K/uL Baso # (Auto) 0.0 (0.0-0.1) K/uL Nucleated RBC % 0.0 /100WBC Nucleated RBCs # 0 K/uL Lactate 0.7 (0.20-2.00) mmol/L Sodium 137 (136-148) mmol/L Potassium 3.9 (3.5-5.1) mmol/L Chloride 103 (98-107) mmol/L Carbon Dioxide 26.6 (21.0-32.0) mmol/L BUN 10 (7.0-18.0) mg/dL Creatinine 1.0 (0.8-1.3) mg/dL Est Cr Clr Drug Dosing 126.73 mL/min Estimated GFR (MDRD) > 60.0 ml/min Glucose 124 H (74-106) mg/dL Calcium 9.4 (8.5-10.1) mg/dL 05/31/18 05/31/18 05/31/18 Range/Units 05:46 05:46 07:26 WBC 12.51 H (4.0-11.0) K/uL RBC 4.43 L (4.50-5.90) M/uL Hgb 13.3 (13.0-17.0) g/dL Hct 39.4 (38.0-50.0) % MCV 88.9 (80.0-98.0) fL MCH 30.0 (27.0-32.0) pg MCHC 33.8 (31.0-37.0) g/dL RDW Std Deviation 46.6 (28.0-62.0) fl RDW Coeff of Merna 14 (11.0-15.0) % Plt Count 216 (150-400) K/uL MPV 10.00 (7.40-12.00) fL Neut % (Auto) 86.8 H (48.0-80.0) % Lymph % (Auto) 6.2 L (16.0-40.0) % [place] % (Auto) 7.0 (0.0-15.0) % Eos % (Auto) 0.0 (0.0-7.0) % Baso % (Auto) 0.0 (0.0-1.5) % Neut # (Auto) 10.9 H (1.4-5.7) K/uL Lymph # (Auto) 0.8 (0.6-2.4) K/uL [place] # (Auto) 0.9 H (0.0-0.8) K/uL Eos # (Auto) 0.0 (0.0-0.7) K/uL Baso # (Auto) 0.0 (0.0-0.1) K/uL Nucleated RBC % 0.0 /100WBC Nucleated RBCs # 0 K/uL Lactate 0.6 (0.20-2.00) mmol/L Sodium 135 L (136-148) mmol/L Potassium 3.8 (3.5-5.1) mmol/L Chloride 104 (98-107) mmol/L Carbon Dioxide 23.1 (21.0-32.0) mmol/L BUN 12 (7.0-18.0) mg/dL Creatinine 0.9 (0.8-1.3) mg/dL Est Cr Clr Drug Dosing 140.81 mL/min Estimated GFR (MDRD) > 60.0 ml/min Glucose 124 H (74-106) mg/dL Calcium 9.5 (8.5-10.1) mg/dL Med Orders - Current: Current Medications Hydrocodone Bitart/Acetaminophen (Boyd 325-5 Mg) 2 tab PO Q4H PRN PRN Reason: Abdominal Pain Last Admin: 05/31/18 03:51 Dose: 2 tab Diazepam (Valium) 5 mg IV BID PRN PRN Reason: Muscle Spasm Last Admin: 05/30/18 23:11 Dose: 5 mg Piperacillin Sod/Tazobactam (Sod 4.5 gm/ Sodium Chloride) 100 mls @ 100 mls/hr IV Q8H [facility] Last Admin: 05/31/18 06:44 Dose: 100 mls/hr Lactated Ringer's (Ringers, Lactated) 1,000 mls @ 125 mls/hr IV ASDIRECTED [facility] Last Admin: 05/31/18 03:06 Dose: 125 mls/hr Ketorolac Tromethamine (Toradol) 15 mg IVPUSH Q6H [facility] Stop: 06/04/18 19:09 Last Admin: 05/31/18 06:40 Dose: 15 mg Lisinopril (Prinivil) 10 mg PO DAILY [facility] Last Admin: 05/30/18 08:36 Dose: 10 mg Morphine Sulfate (Morphine) 4 mg IVPUSH Q2H PRN PRN Reason: Pain (severe 7-10) Last Admin: 05/31/18 03:00 Dose: 4 mg Ondansetron HCl (Zofran) 4 mg IVPUSH Q6H PRN PRN Reason: Nausea/Vomiting Promethazine HCl (Phenergan) 25 mg PO Q6H PRN PRN Reason: Nausea/Vomiting Scopolamine (Transderm-Scop) 1.5 mg TRDERM Q72H PRN PRN Reason: Nausea Sodium Chloride (Saline Flush) 10 ml FLUSH ASDIRECTED PRN PRN Reason: Keep Vein Open Last Admin: 05/29/18 16:17 Dose: 10 ml Sodium Chloride (Saline Flush) 2.5 ml FLUSH ASDIRECTED PRN PRN Reason: Keep Vein Open Last Admin: 05/29/18 16:17 Dose: 2.5 ml Discontinued Medications Bupivacaine HCl (Marcaine 0.5%) Confirm Administered Dose 30 ml .ROUTE .STK-MED ONE Stop: 05/29/18 16:17 Cyclobenzaprine HCl (Flexeril) 5 mg PO TID PRN PRN Reason: Abdominal Pain Last Admin: 05/30/18 11:07 Dose: 5 mg Dexamethasone (Dexamethasone) Confirm Administered Dose 20 mg .ROUTE .STK-MED ONE Stop: 05/29/18 17:00 Esmolol HCl (Esmolol) Confirm Administered Dose 100 mg .ROUTE .STK-MED ONE Stop: 05/29/18 18:10 Fentanyl (Sublimaze) Confirm Administered Dose 250 mcg .ROUTE .STK-MED ONE Stop: 05/29/18 16:24 Fentanyl (Sublimaze) 50 mcg IVPUSH Q5M PRN PRN Reason: Pain (severe 7-10) Stop: 05/30/18 18:27 Glycopyrrolate (Robinul) Confirm Administered Dose 0.4 mg .ROUTE .STK-MED ONE Stop: 05/29/18 18:05 Hydromorphone HCl (Dilaudid) 0.5 mg IVPUSH Q1H PRN PRN Reason: Abdominal Pain Last Admin: 05/30/18 18:32 Dose: 0.5 mg Hydromorphone HCl (Dilaudid) 0.5 mg IVPUSH ONETIME ONE Stop: 05/30/18 17:21 Last Admin: 05/30/18 17:28 Dose: 0.5 mg Sodium Chloride (Normal Saline) 1,000 mls @ 999 mls/hr IV STAT ONE Stop: 05/29/18 15:40 Last Admin: 05/29/18 15:14 Dose: 999 mls/hr Piperacillin Sod/Tazobactam (Sod 3.375 gm/ Sodium Chloride) 50 mls @ 100 mls/ hr IV ONETIME ONE Stop: 05/29/18 15:45 Last Admin: 05/29/18 15:36 Dose: 100 mls/hr Lactated Ringer's (Ringers, Lactated) 1,000 mls @ 125 mls/hr IV ASDIRECTED [facility] Last Admin: 05/30/18 02:57 Dose: 125 mls/hr Iopamidol (Isovue Multipack-370 (76%)) 100 ml IVPUSH ONETIME STA Stop: 05/29/18 16:00 Last Admin: 05/29/18 16:01 Dose: 100 ml Ketorolac Tromethamine (Toradol) Confirm Administered Dose 30 mg .ROUTE .STK- MED ONE Stop: 05/29/18 18:05 Lidocaine (Xylocaine-Mpf 2%) Confirm Administered Dose 5 ml .ROUTE .STK-MED ONE Stop: 05/29/18 18:06 Meperidine HCl (Demerol) Confirm Administered Dose 25 mg .ROUTE .STK-MED ONE Stop: 05/29/18 18:17 Morphine Sulfate (Morphine) 4 mg IVPUSH ONETIME ONE Stop: 05/29/18 12:36 Last Admin: 05/29/18 12:43 Dose: 4 mg Morphine Sulfate (Morphine) 2 mg IVPUSH ONETIME ONE Stop: 05/29/18 15:03 Last Admin: 05/29/18 15:14 Dose: 2 mg Neostigmine Methylsulfate (Neostigmine) Confirm Administered Dose 5 mg .ROUTE .STK-MED ONE Stop: 05/29/18 18:05 Ondansetron HCl (Zofran) Confirm Administered Dose 4 mg .ROUTE .STK-MED ONE Stop: 05/29/18 17:00 Oxycodone/Acetaminophen (Percocet 325-5 Mg) 2 tab PO Q4H PRN PRN Reason: Abdominal Pain Last Admin: 05/30/18 16:54 Dose: 2 tab Propofol (Diprivan 20 Ml) Confirm Administered Dose 200 mg .ROUTE .STK-MED ONE Stop: 05/29/18 16:24 Propofol (Diprivan 20 Ml) Confirm Administered Dose 200 mg .ROUTE .STK-MED ONE Stop: 05/29/18 16:25 Rocuronium [place] (Zemuron) Confirm Administered Dose 100 mg .ROUTE .STK-MED ONE Stop: 05/29/18 17:00 - Exam Wound/Incisions: Healing Well General: Alert, Oriented, Cooperative, No Acute Distress Lungs: Clear to Auscultation, Normal Respiratory Effort Cardiovascular: Regular Rate, Tachycardia GI/Abdominal Exam: Normal Bowel Sounds, Soft, No Distention, No Mass, Tender ( RLQ). No: Guarding, Rigid, Rebound Skin: Warm, Dry, Intact - Problem List & Annotations (1) Appendicitis, acute SNOMED Code(s): 55821323 Code(s): K35.80 - UNSPECIFIED ACUTE APPENDICITIS Status: Acute Current Visit: Yes Qualifiers: Acute appendicitis type: with localized peritonitis Appendicitis perforation presence: with perforation Appendicitis abscess presence: without abscess - Problem List Review Problem List Initiated/Reviewed/Updated: Yes - My Orders Last 24 Hours: Active Orders 24 hr Category Date Time Status Clear Liquid Diet [DIET] Diet 05/31/18 Lunch Active Abdomen wo Cont [CT] Stat Exams 05/30/18 17:51 Stop Req Acetaminophen/HYDROcodone [Boyd 325-5 MG] Med 05/30/18 19:09 Active 2 tab PO Q4H PRN Ketorolac [Toradol] Med 05/30/18 19:15 Active 15 mg IVPUSH Q6H Lactated Ringers [Ringers, Lactated] 1,000 ml Med 05/30/18 18:00 Active IV ASDIRECTED Lisinopril [Prinivil] Med 05/30/18 09:00 Active 10 mg PO DAILY Morphine Med 05/30/18 19:10 Active 4 mg IVPUSH Q2H PRN diazePAM [Valium] Med 05/30/18 19:10 Active 5 mg IV BID PRN Medication Orders Hydrocodone Bitart/Acetaminophen (Boyd 325-5 Mg) 2 tab PO Q4H PRN PRN Reason: Abdominal Pain Last Admin: 05/31/18 03:51 Dose: 2 tab Admin: 05/30/18 22:06 Dose: 2 tab Diazepam (Valium) 5 mg IV BID PRN PRN Reason: Muscle Spasm Last Admin: 05/30/18 23:11 Dose: 5 mg Piperacillin Sod/Tazobactam (Sod 4.5 gm/ Sodium Chloride) 100 mls @ 100 mls/hr IV Q8H [facility] Last Admin: 05/31/18 06:44 Dose: 100 mls/hr Infusion: 05/31/18 00:15 Dose: 100 mls/hr Admin: 05/30/18 23:15 Dose: 100 mls/hr Infusion: 05/30/18 16:38 Dose: 100 mls/hr Admin: 05/30/18 15:38 Dose: 100 mls/hr Infusion: 05/30/18 07:32 Dose: 100 mls/hr Admin: 05/30/18 06:32 Dose: 100 mls/hr Infusion: 05/29/18 23:06 Dose: 100 mls/hr Admin: 05/29/18 22:06 Dose: 100 mls/hr Lactated Ringer's (Ringers, Lactated) 1,000 mls @ 125 mls/hr IV ASDIRECTED [facility] Last Admin: 05/31/18 03:06 Dose: 125 mls/hr Infusion: 05/31/18 02:34 Dose: 125 mls/hr Admin: 05/30/18 18:34 Dose: 125 mls/hr Ketorolac Tromethamine (Toradol) 15 mg IVPUSH Q6H [facility] Stop: 02/14/19 19:09 Last Admin: 05/31/18 06:40 Dose: 15 mg Admin: 05/31/18 00:21 Dose: 15 mg Admin: 05/30/18 19:49 Dose: 15 mg Lisinopril (Prinivil) 10 mg PO DAILY [facility] Last Admin: 05/30/18 08:36 Dose: 10 mg Morphine Sulfate (Morphine) 4 mg IVPUSH Q2H PRN PRN Reason: Pain (severe 7-10) Last Admin: 05/31/18 03:00 Dose: 4 mg Ondansetron HCl (Zofran) 4 mg IVPUSH Q6H PRN PRN Reason: Nausea/Vomiting Promethazine HCl (Phenergan) 25 mg PO Q6H PRN PRN Reason: Nausea/Vomiting Scopolamine (Transderm-Scop) 1.5 mg TRDERM Q72H PRN PRN Reason: Nausea Sodium Chloride (Saline Flush) 10 ml FLUSH ASDIRECTED PRN PRN Reason: Keep Vein Open Last Admin: 05/29/18 16:17 Dose: 10 ml Sodium Chloride (Saline Flush) 2.5 ml FLUSH ASDIRECTED PRN PRN Reason: Keep Vein Open Last Admin: 05/29/18 16:17 Dose: 2.5 ml - Assessment Assessment (Free Text/Narrative):: -Pain: IV morphine, po norco, scheduled toradol IV. Valium as needed for muscle spasms. -CV/Pulm: Remains slightly tachycardic. I believe this may be due to his inflammatory response to the infection. He is hypertensive. Will get his lisinopril this am. His O2 sats are sitting around the low 90s on room air. Currently on 1L NC. Breath sounds are good. He has signs of JORDYN. Encourage IS use. -GI: Abdominal pain much better today. Incisions appear normal and well healing. Tender on palpation over the RLQ but without rebound or guarding. Ok to have clears, but will stick to that until having BM. Start miralax for bowel regiment today. Patient is reportedly diabetic, but states that he hasnt had to take diabetic medications. Blood sugars have been slightly elevated since admission which could be due to his infection, but to clarify this I will get a hemoglobin A1C. If this is high will start blood sugar checks and insulin protocol. -Renal: Will d/c LR as patient is now slightly hyponatremic. UOP adequate. -ID: WBC 12.5 with left shift. He is afebrile and BP is normal. Continue IV zosyn. Continue to monitor for fever. -Px: No need for GI px. SCDs. Will start heparin 5000 subq TID
[2018-05-31 08:18] LABS: HEMOGLOBIN A1C 6.4 % (4.5-6.2)
[2018-05-31] MEDS: Polyethylene Glycol 3350 Powder 17 GM Packet PO SCH (08:39)
[2018-05-31] MEDS: Lisinopril 10 MG Tab PO SCH (08:39)
[2018-05-31] MEDS: Heparin Sodium 5,000 Units/ML Vial SUBCUT SCH ×3 (08:39→22:54)
[2018-05-31] MEDS: Insulin Aspart 100 Units/ML 3 ML Pen SUBCUT SCH ×2 (12:10→17:03)
[2018-06-01] MEDS: Ketorolac 15 MG/ML SDV IVPUSH SCH ×4 (01:40→19:27)
[2018-06-01] MEDS: Heparin Sodium 5,000 Units/ML Vial SUBCUT SCH ×3 (06:15→22:18)
[2018-06-01] MEDS: Piperacillin/Tazobactam 4.5 GM in Sodium Chloride 0.9% 100 ML IV SCH ×3 (06:21→22:46)
[2018-06-01] MEDS: Insulin Aspart 100 Units/ML 3 ML Pen SUBCUT SCH ×3 (06:31→18:30)
--- NOTE | 2018-06-01 08:17 | PCM.SURGPN ---
- General Info Date of Service: 06/01/18 Date of Surgery/Procedure: 05/29/18 POD#: 3 Functional Status: Reports: Pain Controlled, Tolerating Diet, Ambulating, Urinating, Other (Passing gas. Did feel subjectively warm last night. No evidence of fever. ) - Review of Systems General: Reports: Night Sweats HEENT: Reports: No Symptoms Pulmonary: Reports: No Symptoms Cardiovascular: Reports: No Symptoms Gastrointestinal: Reports: No Symptoms Genitourinary: Reports: No Symptoms Musculoskeletal: Reports: No Symptoms Skin: Reports: No Symptoms - Patient Data Vitals - Most Recent: Last Vital Signs Temp 36.3 C 06/01/18 07:59 Pulse 107 H 06/01/18 07:59 Resp 20 06/01/18 07:59 BP 140/77 06/01/18 07:59 Pulse Ox 94 L 06/01/18 07:59 Weight - Most Recent: 167 kg I&O - Last 24 Hours: Intake & Output 05/31/18 06/01/18 06/01/18 22:59 06:59 14:59 Intake Total 100 Balance 100 Lab Results Last 24 Hrs: Laboratory Results - last 24 hr 05/31/18 05/31/18 05/31/18 Range/Units 05:46 11:50 16:58 WBC (4.0-11.0) K/uL RBC (4.50-5.90) M/uL Hgb (13.0-17.0) g/dL Hct (38.0-50.0) % MCV (80.0-98.0) fL MCH (27.0-32.0) pg MCHC (31.0-37.0) g/dL RDW Std Deviation (28.0-62.0) fl RDW Coeff of Merna (11.0-15.0) % Plt Count (150-400) K/uL MPV (7.40-12.00) fL Neut % (Auto) (48.0-80.0) % Lymph % (Auto) (16.0-40.0) % [place] % (Auto) (0.0-15.0) % Eos % (Auto) (0.0-7.0) % Baso % (Auto) (0.0-1.5) % Neut # (Auto) (1.4-5.7) K/uL Lymph # (Auto) (0.6-2.4) K/uL [place] # (Auto) (0.0-0.8) K/uL Eos # (Auto) (0.0-0.7) K/uL Baso # (Auto) (0.0-0.1) K/uL Nucleated RBC % /100WBC Nucleated RBCs # K/uL POC Glucose 108 135 H (60-110) mg/dL Hemoglobin A1c 6.4 H (4.5-6.2) % 06/01/18 06/01/18 Range/Units 06:14 06:25 WBC 14.12 H (4.0-11.0) K/uL RBC 4.22 L (4.50-5.90) M/uL Hgb 12.7 L (13.0-17.0) g/dL Hct 37.8 L (38.0-50.0) % MCV 89.6 (80.0-98.0) fL MCH 30.1 (27.0-32.0) pg MCHC 33.6 (31.0-37.0) g/dL RDW Std Deviation 47.1 (28.0-62.0) fl RDW Coeff of Merna 14 (11.0-15.0) % Plt Count 201 (150-400) K/uL MPV 9.90 (7.40-12.00) fL Neut % (Auto) 84.8 H (48.0-80.0) % Lymph % (Auto) 7.4 L (16.0-40.0) % [place] % (Auto) 6.7 (0.0-15.0) % Eos % (Auto) 1.0 (0.0-7.0) % Baso % (Auto) 0.1 (0.0-1.5) % Neut # (Auto) 12.0 H (1.4-5.7) K/uL Lymph # (Auto) 1.0 (0.6-2.4) K/uL [place] # (Auto) 0.9 H (0.0-0.8) K/uL Eos # (Auto) 0.1 (0.0-0.7) K/uL Baso # (Auto) 0.0 (0.0-0.1) K/uL Nucleated RBC % 0.0 /100WBC Nucleated RBCs # 0 K/uL POC Glucose 102 (60-110) mg/dL Hemoglobin A1c (4.5-6.2) % Med Orders - Current: Current Medications Hydrocodone Bitart/Acetaminophen (Leon 325-5 Mg) 2 tab PO Q4H PRN PRN Reason: Abdominal Pain Last Admin: 05/31/18 23:01 Dose: 2 tab Bisacodyl (Dulcolax) 10 mg PO DAILY [facility] Diazepam (Valium) 5 mg IV BID PRN PRN Reason: Muscle Spasm Last Admin: 05/30/18 23:11 Dose: 5 mg Heparin Sodium (Porcine) (Heparin Sodium) 5,000 units SUBCUT Q8HR [facility] Last Admin: 06/01/18 06:15 Dose: 5,000 units Piperacillin Sod/Tazobactam (Sod 4.5 gm/ Sodium Chloride) 100 mls @ 100 mls/hr IV Q8H [facility] Last Admin: 06/01/18 06:21 Dose: 100 mls/hr Insulin Aspart (Novolog) 0 unit SUBCUT TIDAC [facility]; Protocol Last Admin: 06/01/18 06:31 Dose: Not Given Ketorolac Tromethamine (Toradol) 15 mg IVPUSH Q6H [facility] Stop: 06/04/18 19:09 Last Admin: 06/01/18 06:16 Dose: 15 mg Lisinopril (Prinivil) 10 mg PO DAILY [facility] Last Admin: 05/31/18 08:39 Dose: 10 mg Morphine Sulfate (Morphine Sulfate) 4 mg IV Q2H PRN PRN Reason: Pain (severe 7-10) Last Admin: 05/31/18 12:01 Dose: 4 mg Ondansetron HCl (Zofran) 4 mg IVPUSH Q6H PRN PRN Reason: Nausea/Vomiting Polyethylene Glycol (Miralax) 17 gm PO DAILY [facility] Last Admin: 05/31/18 08:39 Dose: 17 gm Promethazine HCl (Phenergan) 25 mg PO Q6H PRN PRN Reason: Nausea/Vomiting Scopolamine (Transderm-Scop) 1.5 mg TRDERM Q72H PRN PRN Reason: Nausea Sodium Chloride (Saline Flush) 10 ml FLUSH ASDIRECTED PRN PRN Reason: Keep Vein Open Last Admin: 05/29/18 16:17 Dose: 10 ml Sodium Chloride (Saline Flush) 2.5 ml FLUSH ASDIRECTED PRN PRN Reason: Keep Vein Open Last Admin: 05/29/18 16:17 Dose: 2.5 ml Discontinued Medications Bupivacaine HCl (Marcaine 0.5%) Confirm Administered Dose 30 ml .ROUTE .STK-MED ONE Stop: 05/29/18 16:17 Cyclobenzaprine HCl (Flexeril) 5 mg PO TID PRN PRN Reason: Abdominal Pain Last Admin: 05/30/18 11:07 Dose: 5 mg Dexamethasone (Dexamethasone) Confirm Administered Dose 20 mg .ROUTE .STK-MED ONE Stop: 05/29/18 17:00 Esmolol HCl (Esmolol) Confirm Administered Dose 100 mg .ROUTE .STK-MED ONE Stop: 05/29/18 18:10 Fentanyl (Sublimaze) Confirm Administered Dose 250 mcg .ROUTE .STK-MED ONE Stop: 05/29/18 16:24 Fentanyl (Sublimaze) 50 mcg IVPUSH Q5M PRN PRN Reason: Pain (severe 7-10) Stop: 05/30/18 18:27 Glycopyrrolate (Robinul) Confirm Administered Dose 0.4 mg .ROUTE .STK-MED ONE Stop: 05/29/18 18:05 Hydromorphone HCl (Dilaudid) 0.5 mg IVPUSH Q1H PRN PRN Reason: Abdominal Pain Last Admin: 05/30/18 18:32 Dose: 0.5 mg Hydromorphone HCl (Dilaudid) 0.5 mg IVPUSH ONETIME ONE Stop: 05/30/18 17:21 Last Admin: 05/30/18 17:28 Dose: 0.5 mg Sodium Chloride (Normal Saline) 1,000 mls @ 999 mls/hr IV STAT ONE Stop: 05/29/18 15:40 Last Admin: 05/29/18 15:14 Dose: 999 mls/hr Piperacillin Sod/Tazobactam (Sod 3.375 gm/ Sodium Chloride) 50 mls @ 100 mls/ hr IV ONETIME ONE Stop: 05/29/18 15:45 Last Admin: 05/29/18 15:36 Dose: 100 mls/hr Lactated Ringer's (Ringers, Lactated) 1,000 mls @ 125 mls/hr IV ASDIRECTED [facility] Last Admin: 05/30/18 02:57 Dose: 125 mls/hr Lactated Ringer's (Ringers, Lactated) 1,000 mls @ 125 mls/hr IV ASDIRECTED [facility] Last Admin: 05/31/18 03:06 Dose: 125 mls/hr Iopamidol (Isovue Multipack-370 (76%)) 100 ml IVPUSH ONETIME STA Stop: 05/29/18 16:00 Last Admin: 05/29/18 16:01 Dose: 100 ml Ketorolac Tromethamine (Toradol) Confirm Administered Dose 30 mg .ROUTE .STK- MED ONE Stop: 05/29/18 18:05 Lidocaine (Xylocaine-Mpf 2%) Confirm Administered Dose 5 ml .ROUTE .STK-MED ONE Stop: 05/29/18 18:06 Meperidine HCl (Demerol) Confirm Administered Dose 25 mg .ROUTE .STK-MED ONE Stop: 05/29/18 18:17 Morphine Sulfate (Morphine) 4 mg IVPUSH ONETIME ONE Stop: 05/29/18 12:36 Last Admin: 05/29/18 12:43 Dose: 4 mg Morphine Sulfate (Morphine) 2 mg IVPUSH ONETIME ONE Stop: 05/29/18 15:03 Last Admin: 05/29/18 15:14 Dose: 2 mg Morphine Sulfate (Morphine) 4 mg IVPUSH Q2H PRN PRN Reason: Pain (severe 7-10) Last Admin: 05/31/18 03:00 Dose: 4 mg Neostigmine Methylsulfate (Neostigmine) Confirm Administered Dose 5 mg .ROUTE .STK-MED ONE Stop: 05/29/18 18:05 Ondansetron HCl (Zofran) Confirm Administered Dose 4 mg .ROUTE .STK-MED ONE Stop: 05/29/18 17:00 Oxycodone/Acetaminophen (Percocet 325-5 Mg) 2 tab PO Q4H PRN PRN Reason: Abdominal Pain Last Admin: 05/30/18 16:54 Dose: 2 tab Propofol (Diprivan 20 Ml) Confirm Administered Dose 200 mg .ROUTE .STK-MED ONE Stop: 05/29/18 16:24 Propofol (Diprivan 20 Ml) Confirm Administered Dose 200 mg .ROUTE .STK-MED ONE Stop: 05/29/18 16:25 Rocuronium [place] (Zemuron) Confirm Administered Dose 100 mg .ROUTE .STK-MED ONE Stop: 05/29/18 17:00 - Exam Wound/Incisions: Healing Well General: Alert, Oriented, Cooperative HEENT: Pupils Equal, Pupils Reactive Lungs: Clear to Auscultation, Normal Respiratory Effort Cardiovascular: Regular Rate, Tachycardia GI/Abdominal Exam: Soft, Non-Tender, No Distention, No Mass Extremities: Normal Inspection, Normal Range of Motion Skin: Warm, Dry, Intact Neurological: No New Focal Deficit Psy/Mental Status: Alert, Normal Affect, Normal Mood - Problem List & Annotations (1) Appendicitis, acute SNOMED Code(s): 86549675 Code(s): K35.80 - UNSPECIFIED ACUTE APPENDICITIS Status: Acute Current Visit: Yes Qualifiers: Acute appendicitis type: with localized peritonitis Appendicitis perforation presence: with perforation Appendicitis abscess presence: without abscess - Problem List Review Problem List Initiated/Reviewed/Updated: Yes - My Orders Last 24 Hours: Active Orders 24 hr Category Date Time Status Clear Liquid Diet [DIET] Diet 05/31/18 Lunch Active Regular Diet [DIET] Diet 06/01/18 Lunch Ordered CBC WITH AUTO DIFF [HEME] Routine Lab 06/01/18 12:00 Ordered Bisacodyl [Dulcolax] Med 06/01/18 09:00 Ordered 10 mg PO DAILY Heparin Sodium Med 05/31/18 08:30 Active 5,000 units SUBCUT Q8HR Insulin Aspart [NovoLOG] Med 05/31/18 11:30 Active See Protocol SUBCUT TIDAC Morphine Sulfate Med 05/31/18 11:56 Active 4 mg IV Q2H PRN Polyethylene Glycol 3350 [MiraLAX] Med 05/31/18 09:00 Active 17 gm PO DAILY Medication Orders Hydrocodone Bitart/Acetaminophen (Leon 325-5 Mg) 2 tab PO Q4H PRN PRN Reason: Abdominal Pain Last Admin: 05/31/18 23:01 Dose: 2 tab Admin: 05/31/18 18:21 Dose: 2 tab Admin: 05/31/18 13:48 Dose: 2 tab Admin: 05/31/18 08:40 Dose: 2 tab Admin: 05/31/18 03:51 Dose: 2 tab Admin: 05/30/18 22:06 Dose: 2 tab Bisacodyl (Dulcolax) 10 mg PO DAILY [facility] Diazepam (Valium) 5 mg IV BID PRN PRN Reason: Muscle Spasm Last Admin: 05/30/18 23:11 Dose: 5 mg Heparin Sodium (Porcine) (Heparin Sodium) 5,000 units SUBCUT Q8HR [facility] Last Admin: 06/01/18 06:15 Dose: 5,000 units Admin: 05/31/18 22:54 Dose: 5,000 units Admin: 05/31/18 13:48 Dose: 5,000 units Admin: 05/31/18 08:39 Dose: 5,000 units Piperacillin Sod/Tazobactam (Sod 4.5 gm/ Sodium Chloride) 100 mls @ 100 mls/hr IV Q8H [facility] Last Admin: 06/01/18 06:21 Dose: 100 mls/hr Infusion: 05/31/18 23:59 Dose: 100 mls/hr Admin: 05/31/18 22:59 Dose: 100 mls/hr Infusion: 05/31/18 16:04 Dose: 100 mls/hr Admin: 05/31/18 15:04 Dose: 100 mls/hr Infusion: 05/31/18 07:44 Dose: 100 mls/hr Admin: 05/31/18 06:44 Dose: 100 mls/hr Infusion: 05/31/18 00:15 Dose: 100 mls/hr Admin: 05/30/18 23:15 Dose: 100 mls/hr Infusion: 05/30/18 16:38 Dose: 100 mls/hr Admin: 05/30/18 15:38 Dose: 100 mls/hr Infusion: 05/30/18 07:32 Dose: 100 mls/hr Admin: 05/30/18 06:32 Dose: 100 mls/hr Infusion: 05/29/18 23:06 Dose: 100 mls/hr Admin: 05/29/18 22:06 Dose: 100 mls/hr Insulin Aspart (Novolog) 0 unit SUBCUT TIDAC [facility]; Protocol Last Admin: 06/01/18 06:31 Dose: Not Given Admin: 05/31/18 17:03 Dose: Not Given Admin: 05/31/18 12:10 Dose: Not Given Ketorolac Tromethamine (Toradol) 15 mg IVPUSH Q6H [facility] Stop: 06/04/18 19:09 Last Admin: 06/01/18 06:16 Dose: 15 mg Admin: 06/01/18 01:40 Dose: 15 mg Admin: 05/31/18 18:21 Dose: 15 mg Admin: 05/31/18 13:47 Dose: 15 mg Admin: 05/31/18 06:40 Dose: 15 mg Admin: 05/31/18 00:21 Dose: 15 mg Admin: 05/30/18 19:49 Dose: 15 mg Lisinopril (Prinivil) 10 mg PO DAILY [facility] Last Admin: 05/31/18 08:39 Dose: 10 mg Admin: 05/30/18 08:36 Dose: 10 mg Morphine Sulfate (Morphine Sulfate) 4 mg IV Q2H PRN PRN Reason: Pain (severe 7-10) Last Admin: 05/31/18 12:01 Dose: 4 mg Ondansetron HCl (Zofran) 4 mg IVPUSH Q6H PRN PRN Reason: Nausea/Vomiting Polyethylene Glycol (Miralax) 17 gm PO DAILY [facility] Last Admin: 05/31/18 08:39 Dose: 17 gm Promethazine HCl (Phenergan) 25 mg PO Q6H PRN PRN Reason: Nausea/Vomiting Scopolamine (Transderm-Scop) 1.5 mg TRDERM Q72H PRN PRN Reason: Nausea Sodium Chloride (Saline Flush) 10 ml FLUSH ASDIRECTED PRN PRN Reason: Keep Vein Open Last Admin: 05/29/18 16:17 Dose: 10 ml Sodium Chloride (Saline Flush) 2.5 ml FLUSH ASDIRECTED PRN PRN Reason: Keep Vein Open Last Admin: 05/29/18 16:17 Dose: 2.5 ml - Plan Plan (Free Text/Narrative):: Patient looks the best he has in days. Pain is well controlled he feels hungry. He felt subjectively warm this morning but there was no fever. He feels like he needs to have a BM. He is passing flatus. I will order bowel medications to help produce a BM. Ok to start a regular diet. Will recheck WBC this afternoon. If still elevated will keep overnight for ongoing IV antibiotics.
[2018-06-01] MEDS ORDERED: Bisacodyl 5 MG Tab PO SCH (09:00)
[2018-06-01] MEDS: Lisinopril 10 MG Tab PO SCH (09:52)
[2018-06-01] MEDS: Polyethylene Glycol 3350 Powder 17 GM Packet PO SCH (09:52)
--- NOTE | 2018-06-01 20:37 | CR ---
Indication: Productive cough Technique: Chest 1 view Comparison: 01/29/2014 Findings/Impression: Cardiovascular and mediastinum: Heart size and vasculature are normal in caliber and appearance. Mediastinum is within normal limits. Lungs and pleural space: A mildly expiratory study. No gross consolidation or pleural effusions. Bones and soft tissues: No significant findings. Dictated by Julito Blanchard MD @ 06/01/2018 8:36:22 PM Dictated by: Julito Blanchard MD @ 06/01/2018 20:36:28 (Electronically Signed)
[2018-06-01] MEDS: Benzocaine/Cetylpyridinium/Menthol Lozenge MUCMEM PRN ×2 (20:45→22:45)
[2018-06-01] MEDS ORDERED: Multivitamin Tab PO SCH (21:00)
[2018-06-02] MEDS: Ketorolac 15 MG/ML SDV IVPUSH SCH ×2 (01:31→06:29)
[2018-06-02] MEDS: Benzocaine/Cetylpyridinium/Menthol Lozenge MUCMEM PRN ×3 (04:06→09:29)
[2018-06-02] MEDS: Heparin Sodium 5,000 Units/ML Vial SUBCUT SCH (05:44)
[2018-06-02] MEDS: Piperacillin/Tazobactam 4.5 GM in Sodium Chloride 0.9% 100 ML IV SCH (06:29)
[2018-06-02] MEDS: Insulin Aspart 100 Units/ML 3 ML Pen SUBCUT SCH (06:33)
[2018-06-02] MEDS ORDERED: metroNIDAZOLE 250 MG Tab PO SCH (07:45)
[2018-06-02] MEDS: Lisinopril 10 MG Tab PO SCH (08:45)
[2018-06-02 08:53] VITALS: BP 160/84
[2018-06-02] MEDS ORDERED: Ciprofloxacin 500 MG Tab PO SCH (09:00)
--- NOTE | 2018-06-02 15:20 | PCM.DCSUM1 ---
Discharge Summary - Hospital Course Free Text/Narrative:: Patient is a 27 year old male who presented with acute appendicitis. He underwent a laparoscopic appendectomy. His appendix ruptured during the case. He was irrigated out with 3L of normal saline and kept on IV zosyn post- operatively. He did well post op day one and his diet was advanced. That evening he woke from a nap with severe abdominal pain. He was tachycardic. He had no fever. He was hypertensive. Labs including a CBC, BMP, and lactate were normal. A CT abdomen pelvis without contrast was performed. This showed inflammation in the RLQ and some free fluid in the pelvis but no evidence of free air or abscess. His pain regiment was changed and he was seen the next morning. He remained tender in the RLQ but more comfortable. His WBC was stable. The rest of the day he continued to improve. The next morning his WBC had increased to 14K with a left shift. His abdominal pain was now gone however he remained tachycardic. He was given stool softners and had several bowel movements. He then developed a productive cough. A CXR was normal. He was kept on IV antibiotics. This morning his WBC was down to 11.6. His tachycardia had resolved. He is tolerating a regular diet and was switched to cipro and flagyl po. He was feeling well and discharged home. - Discharge Data Discharge Date: 06/02/18 Discharge Disposition: Home, Self-Care 01 Condition: Stable - Discharge Diagnosis/Problem(s) (1) Appendicitis, acute SNOMED Code(s): 55393933 ICD Code: K35.80 - UNSPECIFIED ACUTE APPENDICITIS Status: Acute Qualifiers: Acute appendicitis type: with localized peritonitis Appendicitis perforation presence: with perforation Appendicitis abscess presence: without abscess - Patient Summary/Data Operative Procedure(s) Performed: Laparoscopic appendectomy - Patient Instructions Diet: Regular Diet as Tolerated, Drink 8-10+ Glasses/Day, Diabetic Diet Activity: No Lifting Over 20 Pounds, Rest and Relax Today Activity, Other: 2 weeks off work Driving: Do Not Drive Showering/Bathing: May Shower, No Tub Bathing/Swimming Notify Provider of: Fever, Increased Pain, Swelling and Redness, Drainage, Nausea and/or Vomiting Other/Special Instructions: Follow up on friday or friday for staple removal - Discharge Plan *PRESCRIPTION DRUG MONITORING PROGRAM REVIEWED*: Yes *COPY OF PRESCRIPTION DRUG MONITORING REPORT IN PATIENT PRUDENCIO: Yes Prescriptions/Med Rec: Ciprofloxacin [Ciprofloxacin HCl] 500 mg PO BID #6 tablet Home Medications: Home Meds Lisinopril 10 mg DAILY 05/29/18 [History] Ciprofloxacin [Ciprofloxacin HCl] 500 mg PO BID #6 tablet 06/02/18 [Rx] Patient Handouts: Acetaminophen; Hydrocodone tablets or capsules, Metronidazole tablets or capsules Referrals: Adenike Garcia MD [Physician] - [facility] - - Discharge Summary/Plan Comment DC Time >30 min.: No - General Info Functional Status: Reports: Pain Controlled, Tolerating Diet, Ambulating, Urinating - Review of Systems General: Reports: No Symptoms HEENT: Reports: No Symptoms Pulmonary: Reports: No Symptoms Cardiovascular: Reports: No Symptoms Gastrointestinal: Reports: No Symptoms Genitourinary: Reports: No Symptoms Musculoskeletal: Reports: No Symptoms Skin: Reports: No Symptoms - Patient Data Vitals - Most Recent: Last Vital Signs Temp 35.8 C 06/02/18 08:00 Pulse 98 06/02/18 08:00 Resp 18 06/02/18 08:00 BP 160/84 H 06/02/18 08:45 Pulse Ox 95 06/02/18 08:00 Weight - Most Recent: 167 kg I&O - Last 24 hours: Intake & Output 06/02/18 06/02/18 06/02/18 06:59 14:59 22:59 Intake Total 1500 Balance 1500 Lab Results - Last 24 hrs: Laboratory Results - last 24 hr 06/01/18 06/02/18 06/02/18 Range/Units 16:03 05:45 06:27 WBC 11.65 H (4.0-11.0) K/uL RBC 4.25 L (4.50-5.90) M/uL Hgb 12.6 L (13.0-17.0) g/dL Hct 37.6 L (38.0-50.0) % MCV 88.5 (80.0-98.0) fL MCH 29.6 (27.0-32.0) pg MCHC 33.5 (31.0-37.0) g/dL RDW Std Deviation 46.7 (28.0-62.0) fl RDW Coeff of Merna 14 (11.0-15.0) % Plt Count 255 (150-400) K/uL MPV 10.20 (7.40-12.00) fL Neut % (Auto) 80.0 (48.0-80.0) % Lymph % (Auto) 8.1 L (16.0-40.0) % [place] % (Auto) 9.2 (0.0-15.0) % Eos % (Auto) 2.5 (0.0-7.0) % Baso % (Auto) 0.2 (0.0-1.5) % Neut # (Auto) 9.3 H (1.4-5.7) K/uL Lymph # (Auto) 0.9 (0.6-2.4) K/uL [place] # (Auto) 1.1 H (0.0-0.8) K/uL Eos # (Auto) 0.3 (0.0-0.7) K/uL Baso # (Auto) 0.0 (0.0-0.1) K/uL Nucleated RBC % 0.0 /100WBC Nucleated RBCs # 0 K/uL POC Glucose 130 H 114 H (60-110) mg/dL Med Orders - Current: Current Medications Discontinued Medications Hydrocodone Bitart/Acetaminophen ([place] 325-5 Mg) 2 tab PO Q4H PRN PRN Reason: Abdominal Pain Last Admin: 05/31/18 23:01 Dose: 2 tab Benzocaine/Menthol (Cepacol Sore Throat) 1 lozenge MUCMEM Q2H PRN PRN Reason: Cough Last Admin: 06/02/18 09:29 Dose: 1 lozenge Bisacodyl (Dulcolax) 10 mg PO DAILY [facility] Last Admin: 06/01/18 09:52 Dose: 10 mg Bupivacaine HCl (Marcaine 0.5%) Confirm Administered Dose 30 ml .ROUTE .STK-MED ONE Stop: 05/29/18 16:17 Ciprofloxacin (Ciprofloxacin Hcl) 500 mg PO BID [facility] Last Admin: 06/02/18 08:46 Dose: 500 mg Cyclobenzaprine HCl (Flexeril) 5 mg PO TID PRN PRN Reason: Abdominal Pain Last Admin: 05/30/18 11:07 Dose: 5 mg Dexamethasone (Dexamethasone) Confirm Administered Dose 20 mg .ROUTE .STK-MED ONE Stop: 05/29/18 17:00 Diazepam (Valium) 5 mg IV BID PRN PRN Reason: Muscle Spasm Last Admin: 05/30/18 23:11 Dose: 5 mg Esmolol HCl (Esmolol) Confirm Administered Dose 100 mg .ROUTE .STK-MED ONE Stop: 05/29/18 18:10 Fentanyl (Sublimaze) Confirm Administered Dose 250 mcg .ROUTE .STK-MED ONE Stop: 05/29/18 16:24 Fentanyl (Sublimaze) 50 mcg IVPUSH Q5M PRN PRN Reason: Pain (severe 7-10) Stop: 05/30/18 18:27 Glycopyrrolate (Robinul) Confirm Administered Dose 0.4 mg .ROUTE .STK-MED ONE Stop: 05/29/18 18:05 Heparin Sodium (Porcine) (Heparin Sodium) 5,000 units SUBCUT Q8HR [facility] Last Admin: 06/02/18 05:44 Dose: 5,000 units Hydromorphone HCl (Dilaudid) 0.5 mg IVPUSH Q1H PRN PRN Reason: Abdominal Pain Last Admin: 05/30/18 18:32 Dose: 0.5 mg Hydromorphone HCl (Dilaudid) 0.5 mg IVPUSH ONETIME ONE Stop: 05/30/18 17:21 Last Admin: 05/30/18 17:28 Dose: 0.5 mg Sodium Chloride (Normal Saline) 1,000 mls @ 999 mls/hr IV STAT ONE Stop: 05/29/18 15:40 Last Admin: 05/29/18 15:14 Dose: 999 mls/hr Piperacillin Sod/Tazobactam (Sod 3.375 gm/ Sodium Chloride) 50 mls @ 100 mls/ hr IV ONETIME ONE Stop: 05/29/18 15:45 Last Admin: 05/29/18 15:36 Dose: 100 mls/hr Lactated Ringer's (Ringers, Lactated) 1,000 mls @ 125 mls/hr IV ASDIRECTED [facility] Last Admin: 05/30/18 02:57 Dose: 125 mls/hr Piperacillin Sod/Tazobactam (Sod 4.5 gm/ Sodium Chloride) 100 mls @ 100 mls/hr IV Q8H [facility] Last Admin: 06/02/18 06:29 Dose: 100 mls/hr Lactated Ringer's (Ringers, Lactated) 1,000 mls @ 125 mls/hr IV ASDIRECTED [facility] Last Admin: 05/31/18 03:06 Dose: 125 mls/hr Insulin Aspart (Novolog) 0 unit SUBCUT TIDAC [facility]; Protocol Last Admin: 06/02/18 06:33 Dose: Not Given Iopamidol (Isovue Multipack-370 (76%)) 100 ml IVPUSH ONETIME STA Stop: 05/29/18 16:00 Last Admin: 05/29/18 16:01 Dose: 100 ml Ketorolac Tromethamine (Toradol) Confirm Administered Dose 30 mg .ROUTE .STK- MED ONE Stop: 05/29/18 18:05 Ketorolac Tromethamine (Toradol) 15 mg IVPUSH Q6H [facility] Stop: 06/04/18 19:09 Last Admin: 06/02/18 06:29 Dose: 15 mg Lidocaine (Xylocaine-Mpf 2%) Confirm Administered Dose 5 ml .ROUTE .STK-MED ONE Stop: 05/29/18 18:06 Lisinopril (Prinivil) 10 mg PO DAILY [facility] Last Admin: 06/02/18 08:45 Dose: 10 mg Meperidine HCl (Demerol) Confirm Administered Dose 25 mg .ROUTE .STK-MED ONE Stop: 05/29/18 18:17 Metronidazole (Metronidazole) 250 mg PO Q6H [facility] Last Admin: 06/02/18 08:52 Dose: 250 mg Morphine Sulfate (Morphine) 4 mg IVPUSH ONETIME ONE Stop: 05/29/18 12:36 Last Admin: 05/29/18 12:43 Dose: 4 mg Morphine Sulfate (Morphine) 2 mg IVPUSH ONETIME ONE Stop: 05/29/18 15:03 Last Admin: 05/29/18 15:14 Dose: 2 mg Morphine Sulfate (Morphine) 4 mg IVPUSH Q2H PRN PRN Reason: Pain (severe 7-10) Last Admin: 05/31/18 03:00 Dose: 4 mg Morphine Sulfate (Morphine Sulfate) 4 mg IV Q2H PRN PRN Reason: Pain (severe 7-10) Last Admin: 05/31/18 12:01 Dose: 4 mg Multivitamins/Minerals/Vitamin C (Tab-A-Ric) 1 tab PO BEDTIME [facility] Last Admin: 06/01/18 20:45 Dose: 1 tab Neostigmine Methylsulfate (Neostigmine) Confirm Administered Dose 5 mg .ROUTE .STK-MED ONE Stop: 05/29/18 18:05 Ondansetron HCl (Zofran) Confirm Administered Dose 4 mg .ROUTE .STK-MED ONE Stop: 05/29/18 17:00 Ondansetron HCl (Zofran) 4 mg IVPUSH Q6H PRN PRN Reason: Nausea/Vomiting Oxycodone/Acetaminophen (Percocet 325-5 Mg) 2 tab PO Q4H PRN PRN Reason: Abdominal Pain Last Admin: 05/30/18 16:54 Dose: 2 tab Polyethylene Glycol (Miralax) 17 gm PO DAILY [facility] Last Admin: 06/01/18 09:52 Dose: 17 gm Promethazine HCl (Phenergan) 25 mg PO Q6H PRN PRN Reason: Nausea/Vomiting Propofol (Diprivan 20 Ml) Confirm Administered Dose 200 mg .ROUTE .STK-MED ONE Stop: 05/29/18 16:24 Propofol (Diprivan 20 Ml) Confirm Administered Dose 200 mg .ROUTE .STK-MED ONE Stop: 05/29/18 16:25 Rocuronium [place] (Zemuron) Confirm Administered Dose 100 mg .ROUTE .STK-MED ONE Stop: 05/29/18 17:00 Scopolamine (Transderm-Scop) 1.5 mg TRDERM Q72H PRN PRN Reason: Nausea Sodium Chloride (Saline Flush) 10 ml FLUSH ASDIRECTED PRN PRN Reason: Keep Vein Open Last Admin: 05/29/18 16:17 Dose: 10 ml Sodium Chloride (Saline Flush) 2.5 ml FLUSH ASDIRECTED PRN PRN Reason: Keep Vein Open Last Admin: 05/29/18 16:17 Dose: 2.5 ml - Exam General: Reports: Alert, Oriented HEENT: Reports: Pupils Equal, Pupils Reactive Lungs: Reports: Clear to Auscultation, Normal Respiratory Effort Cardiovascular: Reports: Regular Rate, Regular Rhythm GI/Abdominal Exam: Soft, Non-Tender, No Distention, No Mass
== END 2018-06-02 10:30 | disposition home or self-care (01) | DRG 342 ==
LOC: MW.ED 12:26 → MW.SDS 16:03 → MW.MS 18:18 → OBSVTOIN 06-01 12:35
PROVIDERS: ADMIT Surgery; ATTEND Surgery
PROC: 0DTJ4ZZ Resection of Appendix, Percutaneous Endoscopic Approach (ICD-10-PCS; principal; 2018-05-29)
DX: K35.80 Unspecified acute appendicitis (principal); K35.30 Acute appendicitis with localized peritonitis, without perforation or gangrene; Z68.42 Body mass index [BMI] 45.0-49.9, adult; E87.1 Hypo-osmolality and hyponatremia; E11.9 Type 2 diabetes mellitus without complications; R10.31 Right lower quadrant pain; R11.10 Vomiting, unspecified; R50.9 Fever, unspecified; I10 Essential (primary) hypertension; K21.9 Gastro-esophageal reflux disease without esophagitis; E66.9 Obesity, unspecified; Z79.899 Other long term (current) drug therapy
CPT/HCPCS: 36415 ×3; 74176; 74177; 80048 ×3; 81001; 82962 ×4; 83036; 83605 ×2; 85025 ×4; 85027; 96361; 96365; 96375; 96376; 99285; A9270 ×19; J1100; J1170 ×3; J1644 ×4; J1885 ×8; J2001; J2175; J2270 ×4; J2405; J2543 ×9; J2704 ×2; J3010; J3490 ×3; J7030 ×8; J7040; J7050; J7120 ×4; Q9967; 71045; 71045-26; 99284